=== PATIENT | male | born 1950 | race Caucasian/White ===

== ENCOUNTER 2021-12-12 12:54 | Emergency (ER) | payer MEDICARE, BC ==
[~2021-12-12] VITALS: Ht 175.3 cm; Wt 72.6 kg
--- NOTE | 2021-12-12 13:16 | NUR ---
LAB AT BEDSIDE
--- NOTE | 2021-12-12 13:16 | NUR ---
URINE COLLECTED SENT TO LAB
[2021-12-12] MEDS ORDERED: MORPHINE SULFATE INJ 2 MG/ML DISP.SYRIN ONE (13:29)
[2021-12-12] MEDS ORDERED: KETOROLAC TROMETHAMINE INJ 30 MG/ML VIAL ONE (13:29)
[2021-12-12] MEDS: KETOROLAC TROMETHAMINE INJ 30 MG/ML VIAL IV ONE (13:34)
[2021-12-12] MEDS: MORPHINE SULFATE INJ 2 MG/ML DISP.SYRIN IV ONE (13:34)
--- NOTE | 2021-12-12 13:39 | NUR ---
MORPHINE AND TORADOL GIVEN IV. PATIENT TAKEN TO CT SCAN PROCEDURE.
[2021-12-12 13:40] LABS: BASOPHILS % (AUTO) 0.2 % (0.0-2.0); EOSINOPHILS % (AUTO) 0.1 % (0.0-6.0); HEMATOCRIT 43 % (39-51); HEMOGLOBIN 14.3 g/dL (13.5-17.5); LYMPHOCYTES # (AUTO) 0.7 K/uL (0.8-4.8); LYMPHOCYTES % (AUTO) 7.3 % (20.0-44.0); MEAN CORPUSCULAR HGB CONC 33 g/dl (31.0-36.0); MEAN CORPUSCULAR VOLUME 89 fL (80-96); MONOCYTES # (AUTO) 0.8 K/uL (0.1-1.30); MONOCYTES % (AUTO) 8.4 % (2.0-12.0); NEUTROPHILS # (AUTO) 7.7 K/uL (1.8-8.9); PLATELET COUNT (AUTO) 243 K/uL (150-450); WHITE BLOOD COUNT (AUTO) 9.1 K/uL (4.3-11.0)
--- NOTE | 2021-12-12 13:40 | NUR ---
PT TAKEN TO CT VIA TIFFANIE
--- NOTE | 2021-12-12 13:51 | NUR ---
PT RETURNED FROM CT SCAN PROCEDURE.
[2021-12-12 14:05] LABS: BILIRUBIN,URINE NEGATIVE (NEGATIVE); COLOR,URINE YELLOW (YELLOW); LEUKOCYTE ESTERASE ,URINE NEGATIVE (NEGATIVE); NITRITE, URINE NEGATIVE (NEGATIVE); PROTEIN,URINE NEGATIVE (NEGATIVE); UGLUCOSE NEGATIVE (NEGATIVE); UROBILINOGEN,URINE 0.2 EU/dL (0.2)
[2021-12-12 14:18] LABS: CALCIUM, SERUM 8.4 mg/dL (8.5-10.1); CREATININE 1.6 mg/dL (0.6-1.3); POTASSIUM 4.3 mmol/L (3.5-5.1)
[2021-12-12 14:25] LABS: ALBUMIN 3.8 g/dL (3.4-5.0); BILIRUBIN,DIRECT 0.2 mg/dL (0.0-0.2); TOTAL PROTEIN, SERUM 7.6 g/dL (6.4-8.2)
[2021-12-12] MEDS ORDERED: TAMS-12 PO (14:27)
[2021-12-12] MEDS ORDERED: IBUP-1955 PO (14:27)
[2021-12-12] MEDS ORDERED: HYDR-4275 PO (14:27)
[2021-12-12 14:33] LABS: BACTERIA,URINE Few /HPF (None Seen); SQUAMOUS EPITHELIAL CELL,UR 0-2 /HPF (None Seen); WBC,URINE 0-2 /HPF (0-3)
--- NOTE | 2021-12-12 14:37 | NUR ---
CALLED DR. SULTANA [phone] GUY.
[2021-12-12 14:44] VITALS: BP 142/86
--- NOTE | 2021-12-12 14:52 | NUR ---
Patient discharged to home in stable condition. Written and verbal after care instructions given. Patient verbalizes understanding of instruction. Patient ambulatory w/ steady gait. IV line removed.
== END 2021-12-12 14:52 | disposition home or self-care (01) ==
LOC: ER 13:01
DX: N20.0 Calculus of kidney (principal); Z60.2 Problems related to living alone; Z79.899 Other long term (current) drug therapy
CPT/HCPCS: 36415; 74176; 80048; 80076; 81001; 83690; 85025; 87086; 96374; 96375; 99284; J1885; J2270